=== PATIENT | female | born 1990 | race American Indian/Alaskan Native ===

== ENCOUNTER 2017-11-07 08:55 | Outpatient (CLI) | payer OTHER ==
--- NOTE | 2017-11-07 16:41 | Ultrasound Report ---
TRANSABDOMINAL AND TRANSVAGINAL PELVIC ULTRASOUND: 11/07/17 08:55:00 CLINICAL: Fibroids and irregular menstrual cycles. FINDINGS: Transabdominal and transvaginal pelvic ultrasound demonstrated an enlarged fibroid uterus measuring 10.2 x 11.9 x 7.3 cm. The largest uterine fibroid is located subserosal in the posterior lower uterine segment to the left of midline and measures 8.0 x 6.8 x 7.9 cm. A posterior intramural uterine body fibroid to the left of midline measures 3.1 x 2.9 x 2.6 cm. The next largest fibroid is located subserosal in the right anterior uterine fundus and measures 2.9 x 2.7 x 2.7 cm.The endometrium is normal and measures 2 mm AP thickness. Ovaries were not identified. No adnexal mass. free fluid. Normal urinary bladder. IMPRESSION: 1. Uterine leiomyomata with a dominant 8 cm left posterior left lower uterine segment subserosal fibroid. 2. Normal endometrium. 3. Ovaries not identified.
== END 2017-11-07 08:56 | disposition home or self-care (01) ==
LOC: SPVWC 08:55
PROVIDERS: ATTEND Family Medicine
DX: D25.2 Subserosal leiomyoma of uterus (principal); D25.1 Intramural leiomyoma of uterus
CPT/HCPCS: 76830; 76856